=== PATIENT | male | born 1985 | race Caucasian/White ===

== ENCOUNTER 2019-12-23 00:03 | Emergency (ER) | payer OTHER ==
[2019-12-23 00:08] VITALS: TEMP 97.8; BMI 25.7
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
[2019-12-23] MEDS ORDERED: ACETAMINOPHEN 500 MG TABLET (FP) PO ONE (00:58)
[2019-12-23] MEDS ORDERED: ACETAMINOPHEN 325 MG TABLET (FP) ONE (01:02)
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
[2019-12-23 02:27] VITALS: BP 132/86; PULSE 73
== END 2019-12-23 02:19 | disposition left against medical advice (07) ==
LOC: JER 00:03
DX: S09.8XXA Other specified injuries of head, initial encounter (principal); M54.5 Low back pain; X02.4XXA Hit by object from burning building or structure in controlled fire, initial encounter; Y93.89 Activity, other specified; Y92.89 Other specified places as the place of occurrence of the external cause; Y99.0 Civilian activity done for income or pay; Z91.013 Allergy to seafood
CPT/HCPCS: 99284-25

== ENCOUNTER 2019-12-25 11:21 | Emergency (ER) | payer OTHER ==
[2019-12-25 11:26] VITALS: BP 120/67; PULSE 80; TEMP 97.9; BMI 25.7
[2019-12-25] MEDS ORDERED: ACETAMINOPHEN 325 MG TABLET (FP) PO ONE (11:28)
[2019-12-25] MEDS ORDERED: ACETAMINOPHEN 500 MG TABLET (FP) ONE (11:30)
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
== END 2019-12-25 13:29 | disposition home or self-care (01) ==
LOC: JERFT 11:21
DX: R68.84 Jaw pain (principal); Z91.013 Allergy to seafood
CPT/HCPCS: 70450-TC; 70486-TC; 72125-TC; 99284-25

== ENCOUNTER 2021-05-21 15:29 | Emergency (ER) | payer OTHER ==
[2021-05-21 15:42] VITALS: BP 147/71; PULSE 83; TEMP 97.6; BMI 23.7
[2021-05-21] MEDS ORDERED: ceFAZolin SODIUM 1 GM VIAL IM ONE (16:14)
[2021-05-21] MEDS ORDERED: CEPHALEXIN MONOHYDRATE 500 MG CAPSULE (UD) PO ONE (17:00)
[2021-05-21] MEDS ORDERED: CEPHALEXIN MONOHYDRATE 500 MG CAPSULE (UD) ONE (17:03)
== END 2021-05-21 17:36 | disposition home or self-care (01) ==
LOC: JERFT 15:29 → JER 15:29 → JERFT 17:36
DX: S61.212A Laceration without foreign body of right middle finger without damage to nail, initial encounter (principal)
CPT/HCPCS: 73130-TC-RT-FY; 99284-25

== ENCOUNTER 2021-05-28 11:55 | Emergency (ER) | payer OTHER ==
[2021-05-28 12:24] VITALS: BP 113/68; PULSE 76; TEMP 97.8; BMI 23.1
== END 2021-05-28 13:13 | disposition home or self-care (01) ==
LOC: JERFT 11:55
DX: Z48.00 Encounter for change or removal of nonsurgical wound dressing (principal)
CPT/HCPCS: 99281-25

== ENCOUNTER 2023-02-02 03:44 | Emergency (ER) | payer OTHER ==
[2023-02-02 03:58] VITALS: BP 109/69; PULSE 99; RESP 18; TEMP 98; BMI 22.4
[2023-02-02] MEDS ORDERED: IBUPROFEN 600 MG TABLET (FP) PO ONE (04:27)
== END 2023-02-02 06:39 | disposition home or self-care (01) ==
LOC: JER 03:44
DX: T59.811A Toxic effect of smoke, accidental (unintentional), initial encounter (principal); J70.5 Respiratory conditions due to smoke inhalation
CPT/HCPCS: 82375; 93005; 93010; 99284-25

== ENCOUNTER 2025-01-18 19:19 | Emergency (ER) | payer OTHER ==
[2025-01-18 19:36] VITALS: BP 132/80; PULSE 96; RESP 16; TEMP 98.9; BMI 22.4
[2025-01-18] MEDS ORDERED: IBUPROFEN 600 MG TABLET (FP) PO ONE (20:28)
[2025-01-18] MEDS ORDERED: METHOCARBAMOL 500 MG TABLET ONE (20:28)
[2025-01-18] MEDS: IBUPROFEN 600 MG TABLET (FP) PO ONE (20:43)
[2025-01-18] MEDS: ACETAMINOPHEN 500 MG TABLET (FP) PO ONE (20:44)
[2025-01-18] MEDS: METHOCARBAMOL 500 MG TABLET PO ONE (20:44)
== END 2025-01-18 22:51 | disposition home or self-care (01) ==
LOC: JER 19:19
DX: M25.512 Pain in left shoulder (principal); M79.662 Pain in left lower leg; W18.40XA Slipping, tripping and stumbling without falling, unspecified, initial encounter; Y99.0 Civilian activity done for income or pay
CPT/HCPCS: 73030-TC-LT-FY; 73590-TC-LT-FY; 99284-25

== ENCOUNTER 2025-07-02 20:47 | Emergency (ER) | payer OTHER ==
[2025-07-02 20:58] VITALS: BP 134/78; PULSE 102; RESP 18; TEMP 98.4; BMI 21.8
[2025-07-02] MEDS ORDERED: IBUPROFEN 400 MG TABLET (FP) PO ONE (22:16)
[2025-07-02] MEDS ORDERED: ACETAMINOPHEN 325 MG TABLET (FP) ONE (22:16)
[2025-07-02] MEDS: ACETAMINOPHEN 325 MG TABLET (FP) PO ONE (22:23)
[2025-07-02] MEDS: IBUPROFEN 400 MG TABLET (FP) PO ONE (22:23)
== END 2025-07-02 22:53 | disposition home or self-care (01) ==
LOC: JER 20:47
DX: R42 Dizziness and giddiness (principal); R11.2 Nausea with vomiting, unspecified; R53.83 Other fatigue; T59.811A Toxic effect of smoke, accidental (unintentional), initial encounter
CPT/HCPCS: 93005; 93010; 99283-25